=== PATIENT | male | born 2000 | race Caucasian/White ===

== ENCOUNTER 2022-04-24 11:13 | Outpatient (CLI) | payer OTHER, SELFPAY ==
[2022-04-24 21:19] LABS: Albumin* 4.4 g/dL (3.3-5.0); Chloride* 101 mmol/L (96-114); Potassium* 4.6 mmol/L (3.6-5.1); Sodium* 139 mmol/L (135-149)
[2022-04-24 21:21] LABS: Bilirubin Total* 0.8 mg/dL (0.1-1.5); Creatinine* 0.8 mg/dL (0.5-1.5); Estimated Glomerular Filt Rate 130 ml/min
[2022-04-24 21:22] LABS: Alanine Aminotransferase* 15 U/L (4-50); Alkaline Phosphatase* 80 U/L (40-150); Aspartate Amino Transferase* 27 U/L (12-35); Blood Urea Nitrogen* 15 mg/dL (5-24); Carbon Dioxide* 29 mmol/L (20-32); Glucose* 98 mg/dL (60-115)
[2022-04-24 21:23] LABS: Calcium* 9.4 mg/dL (8.4-10.6)
[2022-04-24 21:39] LABS: Vitamin D 25 Hydroxy* 37 ng/mL (30-80)
[2022-04-24 21:40] LABS: Free T4 Free Thyroxine* 1.09 ng/dL (0.70-1.85)
== END 2022-04-24 11:14 | disposition home or self-care (01) ==
LOC: LKVREF 11:14
PROVIDERS: Visit Provider Nurse Practitioner Family
DX: Z79.899 Other long term (current) drug therapy (principal); F41.0 Panic disorder [episodic paroxysmal anxiety]; R63.0 Anorexia; F32.A Depression, unspecified
CPT/HCPCS: 80053; 82306; 84439; 84443

== ENCOUNTER 2024-05-31 11:42 | Outpatient (CLI) | payer OTHER, SELFPAY | END 2024-05-31 11:43 | disposition home or self-care (01) | LOC: NFLDREF 06-03 07:13 | PROVIDERS: Visit Provider Physician Assistant Medical | DX: R42 Dizziness and giddiness (principal); R53.83 Other fatigue | CPT/HCPCS: 82306; 82607; 82728; 84443 ==